=== PATIENT | male | born 1990 | race Caucasian/White ===

== ENCOUNTER 2017-02-13 22:13 | Emergency (ER) | payer OTHER ==
[2017-02-13 22:43] VITALS: RESP 16
[2017-02-13] MEDS ORDERED: Sodium Chloride 0.9% 1,000 ML IV ONE (23:17)
--- NOTE | 2017-02-13 23:17 | C.PDOC ---
History Of Present Illness Patient presents to the ER with a complaint of LLQ pain for the past 2 weeks that has worsened today. Denies fever, chills, nausea, vomiting. Time Seen by Provider: 02/13/17 23:17 Chief Complaint (Nursing): Abdominal Pain History Per: Patient History/Exam Limitations: no limitations Onset/Duration Of Symptoms: Days (2 weeks) Current Symptoms Are (Timing): Still Present Severity: Mild Pain Scale Rating Of: 4 Location Of Pain/Discomfort: LLQ Radiation Of Pain To:: None Associated Symptoms: denies: Fever, Chills, Nausea, Vomiting Exacerbating Factors: None Alleviating Factors: None Recent travel outside of the [place]: No Past Medical History Reviewed: Historical Data, Nursing Documentation, Vital Signs Vital Signs: Last Vital Signs Temp 98.2 F 02/13/17 22:41 Pulse 84 02/13/17 22:41 Resp 16 02/13/17 22:41 BP 138/85 02/13/17 22:41 Pulse Ox 99 02/14/17 00:37 - Medical History PMH: No Chronic Diseases Surgical History: No Surg Hx - [facility] Procedures CLOSURE SKIN & SUBCUTANEOUS NEC (03/09/14) Family History: States: No Known Family Hx - Social History Hx Tobacco Use: No Hx Alcohol Use: Yes Hx Substance Use: No - Immunization History Hx Tetanus Toxoid Vaccination: No Hx Influenza Vaccination: No Hx Pneumococcal Vaccination: No Review Of Systems Constitutional: Negative for: Fever, Chills Gastrointestinal: Positive for: Abdominal Pain (LLQ). Negative for: Nausea, Vomiting Physical Exam - Physical Exam Appears: Non-toxic Skin: Warm, Dry Oral Mucosa: Moist Chest: Symmetrical, No Tenderness Cardiovascular: Rhythm Regular, No Murmur Respiratory: No Rales, No Rhonchi, No Wheezing Gastrointestinal/Abdominal: Tenderness (LLQ), No Guarding, No Rebound Neurological/Psych: Oriented x3 ED Course And Treatment - Laboratory Results Result Diagrams: 02/13/17 23:43 02/13/17 23:43 O2 Sat by Pulse Oximetry: 99 Pulse Ox Interpretation: Normal Progress Note: Blood work ordered. IV fluids administered. Reevaluation Time: 01:09 Reassessment Condition: Improved Disposition Counseled Patient/Family Regarding: Studies Performed, Diagnosis, Need For Followup, Rx Given - Disposition Referrals: Florian Lucero MD [Staff Provider] - Disposition: HOME/ ROUTINE Disposition Time: 23:17 Condition: FAIR Prescriptions: Ibuprofen [Motrin Tab] 800 mg PO TID PRN #15 tab PRN Reason: Pain, Moderate (4-7) Instructions: Renal Colic (ED), Kidney Stones (DC) Print Language: GREENLANDIC - Clinical Impression Clinical Impression: Renal colic on left side, Kidney stone, Hematuria - Scribe Statement The provider has reviewed the documentation as recorded by the Scribkory Rao All medical record entries made by the Wilderibkory were at my direction and personally dictated by me. I have reviewed the chart and agree that the record accurately reflects my personal performance of the history, physical exam, medical decision making, and the department course for this patient. I have also personally directed, reviewed, and agree with the discharge instructions and disposition.
[2017-02-13 23:44] LABS: RBC URINE 695 /hpf (0-3); URINE BACTERIA RARE (<OCC); URINE BILIRUBIN NEGATIVE (NEGATIVE); URINE BLOOD 3+ (NEGATIVE); URINE COLOR Yellow (YELLOW); URINE GLUCOSE (UA) NORMAL (Normal); URINE KETONE NEGATIVE (NEGATIVE); URINE LEUKOCYTE ESTERASE NEG Leu/uL (Negative); URINE PROTEIN 1+ mg/dL (NEGATIVE); URINE UROBILINOGEN NORMAL mg/dL (0.2-1.0); WBC URINE 2 /hpf (0-5)
[2017-02-13 23:45] LABS: BASO # 0.1 K/uL (0.0-0.2); BASO % 1.5 % (0.0-2.0); EOS # 0.1 K/uL (0.0-0.7); EOS % 2.1 % (0.0-4.0); HEMATOCRIT 46.6 % (35.0-51.0); LYMPH # 2.5 K/uL (1.0-4.3); LYMPH % 50.4 % (20.0-40.0); MEAN CELL VOLUME 85.5 fL (80.0-94.0); MEAN CORPUSCULAR HEMOGLOBIN 29.1 pg (27.0-31.0); MEAN PLATELET VOLUME 9.2 fL (7.2-11.7); MONO # 0.4 K/uL (0.0-0.8); MONO % 7.1 % (0.0-10.0); NRBC % 0.2 % (0.0-2.0); RED CELL DISTRIBUTION WIDTH 12.8 % (11.5-14.5); WHITE BLOOD COUNT 5.1 K/uL (4.8-10.8)
[2017-02-13 23:53] LABS: CHLORIDE 102 mmol/L (98-107)
[2017-02-13 23:54] LABS: POTASSIUM 3.9 mmol/L (3.6-5.2); SODIUM 138 mmol/L (132-148)
[2017-02-13 23:56] LABS: ALB/GLOB RATIO 1.7 (1.0-2.1); ALKALINE PHOSPHATASE 48 U/L (38-126); AST/SGOT 29 U/L (17-59); BILIRUBIN,TOTAL 1.2 mg/dL (0.2-1.3); BLOOD UREA NITROGEN 20 mg/dL (9-20); CARBON DIOXIDE 26 mmol/L (22-30); GFR AFRICAN-AMERICAN > 60; TOTAL PROTEIN 7.5 g/dL (6.3-8.3)
[2017-02-13 23:57] LABS: ALT/SGPT 30 U/L (21-72); CALCIUM 9.2 mg/dl (8.6-10.4); GLUCOSE,RANDOM 87 mg/dL (75-110)
[2017-02-14] MEDS ORDERED: Sodium Chloride 0.9% 1,000 ML ONE (00:04)
--- NOTE | 2017-02-14 01:01 | CT ---
EXAM: CT Abdomen and Pelvis Without Intravenous Contrast CLINICAL HISTORY: 26 years old, male; Pain; Abdominal pain and other: Left lower abd pain; Patient HX: 816; Additional info: Abd pain, left flank TECHNIQUE: Axial computed tomography images of the abdomen and pelvis without intravenous contrast. This CT exam was performed using one or more of the following dose reduction techniques: automated exposure control, adjustment of the mA and/or kV according to patient size, and/or use of iterative reconstruction technique. Coronal and sagittal reformatted images were created and reviewed. EXAM DATE/TIME: 02/13/2017 11:56 PM COMPARISON: CT - ABD PELVIS W/O PO OR IV CONT 04/12/2016 8:13:51 PM FINDINGS: Lower thorax: Heart size is normal. There is minimal atelectasis and scarring at the lung bases. ABDOMEN: Liver: unremarkable Gallbladder and bile ducts: Gallbladder is collapsed. Common bile duct is not demonstrated. Pancreas: unremarkable Spleen: unremarkable Adrenals: unremarkable Kidneys and ureters: There is tiny bilateral nonobstructing renal stones there are no ureteral stones. There is no pelvocaliectasis or ureterectasis. Stomach and bowel: Stomach is partially distended. Rotation is normal. There is no obstruction. Terminal ileum is unremarkable. Appendix is unremarkable. There is moderate stool in the colon. Appendix: See above. PELVIS: Bladder: Urinary bladder is partially distended. Reproductive: Seminal vesicles and prostate are unremarkable. ABDOMEN and PELVIS: Intraperitoneal space:There is no free air or free fluid. Bones/joints: There are no acute osseous abnormalities Soft tissues: unremarkable Vasculature: Vascular structures are unremarkable. Lymph nodes: There is no pathologic adenopathy. IMPRESSION: Tiny bilateral nonobstructing renal stones, no ureteral stones or hydronephrosis Additional findings as described above.
[2017-02-14 01:35] VITALS: BP 130/72; PULSE 71; TEMP 98; O2SAT 98
== END 2017-02-14 01:35 | disposition home or self-care (01) ==
LOC: C.ER 22:13
DX: N20.0 Calculus of kidney (principal); R31.9 Hematuria, unspecified
CPT/HCPCS: 74176; 80053; 81001; 83690; 85025; 96361; 96374; 99284; J1885; J7040

== ENCOUNTER 2017-02-19 23:04 | Emergency (ER) | payer OTHER ==
[2017-02-19 23:31] VITALS: BP 131/77; PULSE 69; TEMP 98.3; O2SAT 99
--- NOTE | 2017-02-20 00:09 | C.PDOC ---
History Of Present Illness 26 y/o male with pmh of psychiatric disorder c/o left flank pain for some time that is worse when he is walking or lifting heavy things. . pain comes and goes. no fever or chills, 1 episode of vomiting yesterday, no diarrhea, last bm today. pt c/o possible hematuria. pt seen in ED n 02/14 for similar pain; had labs done and abdominal ct done with following results. IMPRESSION: Tiny bilateral nonobstructing renal stones, no ureteral stones or hydronephrosis . Pt sts he is taking ibuprofen with no relief. Time Seen by Provider: 02/19/17 23:40 Chief Complaint (Nursing): Male Genitourinary History Per: Patient History/Exam Limitations: no limitations Onset/Duration Of Symptoms: Days (weeks) Current Symptoms Are (Timing): Still Present Severity: Mild Quality Of Discomfort: "Pain" Associated Symptoms: Vomiting (on epidose yesterday), Urinary Symptoms. denies : Fever, Chills, Nausea, Diarrhea, Loss Of Appetite, Chest Pain Alleviating Factors: Rest Recent travel outside of the [place]: No Past Medical History Reviewed: Historical Data, Nursing Documentation, Vital Signs Vital Signs: Last Vital Signs Temp 98.3 F 02/19/17 23:25 Pulse 69 02/19/17 23:25 Resp 20 02/20/17 01:29 BP 131/77 02/19/17 23:25 Pulse Ox 99 02/20/17 01:26 - Medical History PMH: Depression, Kidney Stones (a week ago) Denies: Diabetes, Hepatitis, HIV, HTN, Seizures, Sexually Transmitted Disease Surgical History: No Surg Hx - [facility] Procedures CLOSURE SKIN & SUBCUTANEOUS NEC (03/09/14) Family History: States: Unknown Family Hx - Social History Hx Tobacco Use: No Hx Alcohol Use: Yes Hx Substance Use: No - Immunization History Hx Tetanus Toxoid Vaccination: No Hx Influenza Vaccination: No Hx Pneumococcal Vaccination: No Review Of Systems Constitutional: Negative for: Fever, Chills Respiratory: Negative for: Cough Gastrointestinal: Positive for: Vomiting, Abdominal Pain (llq). Negative for: Nausea Genitourinary: Positive for: Frequency, Hematuria Skin: Negative for: Rash Neurological: Negative for: Weakness, Numbness Physical Exam - Physical Exam Appears: Non-toxic, No Acute Distress Skin: Normal Color, Warm, Dry Head: Atraumatic, Normacephalic Neck: Normal ROM Chest: Symmetrical, No Deformity, No Tenderness Cardiovascular: Rhythm Regular, No Murmur Respiratory: Normal Breath Sounds, No Rales, No Rhonchi, No Wheezing Gastrointestinal/Abdominal: Bowel Sounds, Soft, No Tenderness Back: No CVA Tenderness Neurological/Psych: Oriented x3, Normal Speech, Normal Cognition, Normal Motor, Normal Sensation ED Course And Treatment O2 Sat by Pulse Oximetry: 99 Medical Decision Making Medical Decision Makin26 y/o male with renal stones c/o continuing left flank pain, dx with renal stones after ct on 02/14. pt reports pain worse with movement; likely muculoskeletal. 118 am pt is comfortable. axr shows large stool. will give miralax. also pt still with hematuria and occasional dysuria; will tx for uti, f/u gu and med clinic. Disposition Counseled Patient/Family Regarding: Studies Performed, Diagnosis, Need For Followup, Rx Given - Disposition Referrals: Florian Lucero MD [Staff Provider] - [facility] [Outside] [facility] [Outside] Disposition: HOME/ ROUTINE Disposition Time: 01:20 Condition: STABLE Additional Instructions: Drink increased fluids, try prune juice to help with bowel movements. . Take ibuprofen for pain. Take antibiotic until completed. Take miralax for constipaiton. Follow up with urologist (Dr Lucero) and also in medical clinic. Prescriptions: Nitrofurantoin Macrocrystals [Macrobid] 100 mg PO BID #14 cap Polyethylene Glycol 3350 [Miralax] 17 gm PO DAILY #7 packet Instructions: Constipation (ED), Urinary Tract Infection in Men (ED) Forms: Gen Discharge Inst Greek Print Language: DIVEHI - Clinical Impression Clinical Impression: Constipation, Urinary tract infection
[2017-02-20 00:47] LABS: RBC URINE 66 /hpf (0-3); URINE BILIRUBIN NEGATIVE (NEGATIVE); URINE BLOOD 2+ (NEGATIVE); URINE COLOR Yellow (YELLOW); URINE GLUCOSE (UA) NORMAL (Normal); URINE KETONE NEGATIVE (NEGATIVE); URINE LEUKOCYTE ESTERASE TRACE Leu/uL (Negative); URINE PROTEIN NEGATIVE (NEGATIVE); URINE UROBILINOGEN NORMAL mg/dL (0.2-1.0); WBC URINE 6 /hpf (0-5)
[2017-02-20 01:30] VITALS: RESP 20
--- NOTE | 2017-02-20 07:32 | RAD ---
Abdomen two views History: Left-sided abdominal pain. Comparison: None available. Findings: Moderate fecal retention in the colon. No evidence of bowel obstruction. Relative paucity of small bowel gas. Osseous structures preserved. Impression: Moderate fecal retention in the colon.
== END 2017-02-20 01:29 | disposition home or self-care (01) ==
LOC: C.ER 23:04
DX: N39.0 Urinary tract infection, site not specified (principal); R31.9 Hematuria, unspecified; K59.00 Constipation, unspecified
CPT/HCPCS: 74000; 81001; 96372; 99284; J1885

== ENCOUNTER 2017-08-29 08:04 | Emergency (ER) | payer OTHER ==
[2017-08-29 08:06] VITALS: BMI 24.0
[2017-08-29 08:08] VITALS: RESP 18; TEMP 98.1; O2SAT 98
--- NOTE | 2017-08-29 09:12 | C.PDOC ---
History Of Present Illness 27 year old male presents to ED for evaluation of left ankle pain since last night. Pt states he stood on a table to clean something, and fell injuring his left lower leg last night. Notes having surgery on his left ankle 5 years ago in OR. Denies fever, or change in sensation. Denies head trauma or any other injury. Pt notes he just wants to make sure the surgery is "ok". Time Seen by Provider: 08/29/17 08:16 Chief Complaint (Nursing): Lower Extremity Problem/Injury History Per: Patient History/Exam Limitations: no limitations Onset/Duration Of Symptoms: Days (1) Current Symptoms Are (Timing): Still Present Recent travel outside of the [place]: No Additional History Per: Patient - Ankle/Foot Description Of Injury: Fell Past Medical History Reviewed: Historical Data, Nursing Documentation, Vital Signs Vital Signs: Last Vital Signs Temp 98.1 F 08/29/17 08:06 Pulse 69 08/29/17 08:06 Resp 18 08/29/17 08:06 BP 135/79 08/29/17 08:06 Pulse Ox 98 08/29/17 09:22 - Medical History PMH: Depression, Kidney Stones (a week ago), Chronic Kidney Disease Denies: Diabetes, Hepatitis, HIV, HTN, Seizures, Sexually Transmitted Disease Other Surgeries: left ankle surgery 5 years ago - [facility] Procedures CLOSURE SKIN & SUBCUTANEOUS NEC (03/09/14) Family History: States: Unknown Family Hx - Social History Hx Tobacco Use: No Hx Alcohol Use: Yes Hx Substance Use: No - Immunization History Hx Tetanus Toxoid Vaccination: No Hx Influenza Vaccination: No Hx Pneumococcal Vaccination: No Review Of Systems Except As Marked, All Systems Reviewed And Found Negative. Constitutional: Negative for: Fever, Chills Musculoskeletal: Positive for: Foot Pain (left ankle pain) Skin: Negative for: Rash, Bruising Neurological: Negative for: Weakness, Numbness Physical Exam - Physical Exam Appears: Non-toxic, No Acute Distress Skin: Warm, Dry, No Other (superficial abrasion to proximal aspect of left lower leg with no swelling, erythema or tenderess.) Head: Atraumatic, Normacephalic Eye(s): bilateral: Normal Inspection, EOMI Nose: Normal Oral Mucosa: Moist Neck: Normal ROM, Supple Chest: Symmetrical Cardiovascular: Rhythm Regular Respiratory: No Accessory Muscle Use Extremity: Normal ROM, Tenderness (mild tenderness to lateral aspect of left ankle ), No Pedal Edema, No Calf Tenderness, Capillary Refill (less than 2 seconds), No Deformity, No Swelling Extremity: Bilateral: Normal Color And Temperature, Normal ROM Pulses: Left Dorsalis Pedis: Normal, Right Dorsalis Pedis: Normal Neurological/Psych: Oriented x3, Normal Speech, Normal Motor, Normal Sensation ED Course And Treatment O2 Sat by Pulse Oximetry: 98 (RA) Pulse Ox Interpretation: Normal - Other Rad Left ankle x-ray X-Ray: Interpreted by Me, Viewed By Me Interpretation: No acute fracture or dislocation. Progress Note: Left ankle x-ray ordered and reviewed. Pt was given Motrin for pain. Stirrup splint applied to left ankle by apartment maintenance technician. Pt is being discharged home, with instructions to follow up with orthopedist in 1-2 days for further evaluation. Disposition - Disposition Referrals: Janae Castañeda MD [Staff Provider] - Disposition: HOME/ ROUTINE Disposition Time: 09:44 Condition: STABLE Additional Instructions: Rest, ice and elevate the area. Follow up with your bone doctor in 1-2 days. Return to ER if symptoms persist or worsen. 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 - Scribe Statement The provider has reviewed the documentation as recorded by the Scribe Awais Bang All medical record entries made by the Scribe were at my direction and personally dictated by me. I have reviewed the chart and agree that the record accurately reflects my personal performance of the history, physical exam, medical decision making, and the department course for this patient. I have also personally directed, reviewed, and agree with the discharge instructions and disposition.
--- NOTE | 2017-08-29 09:39 | RAD ---
PROCEDURE: Left Ankle Radiographs. HISTORY: trauma COMPARISON: None FINDINGS: BONES: . Lateral plate with 5 horizontal screws transfixing the plate to the fibula noted. . There are 2 diagonal screws projecting over the fibula and posterior malleolus not within the plate JOINTS: No prominent spurring. Ankle mortise maintained. Talar dome intact SOFT TISSUES: Normal. OTHER FINDINGS: None. IMPRESSION: Status post open reduction and internal fixation of prior ankle fracture. No hardware failure appreciated
[2017-08-29 09:59] VITALS: BP 128/69; PULSE 71
== END 2017-08-29 09:51 | disposition home or self-care (01) ==
LOC: C.ER 08:04
DX: S93.402A Sprain of unspecified ligament of left ankle, initial encounter (principal); W08.XXXA Fall from other furniture, initial encounter; N18.9 Chronic kidney disease, unspecified

== ENCOUNTER 2017-11-20 07:07 | Emergency (ER) | payer OTHER ==
[2017-11-20 07:07] VITALS: BMI 24.0
[2017-11-20] MEDS ORDERED: Sodium Chloride 0.9% 1,000 ML IV ONE (07:32)
[2017-11-20] MEDS ORDERED: Sodium Chloride 0.9% 1,000 ML ONE (07:52)
--- NOTE | 2017-11-20 07:54 | C.PDOC ---
History Of Present Illness 27 y/o male presents to ED with complaints of intermittent left sided abdominal pain 7/10 for 3 weeks with associated dysuria and hematuria. Patient reports pain became constant 3 days ago but denies taking any pain medication. Patient states last bowel movement was this morning and denies change in appetite, nausea, vomiting, diarrhea, scrotum pain or penile discharge. Time Seen by Provider: 11/20/17 07:20 Chief Complaint (Nursing): Abdominal Pain History Per: Patient History/Exam Limitations: no limitations Onset/Duration Of Symptoms: Days Current Symptoms Are (Timing): Still Present Location Of Pain/Discomfort: LLQ Past Medical History Reviewed: Historical Data, Nursing Documentation, Vital Signs Vital Signs: Last Vital Signs Temp 97.4 F L 11/20/17 07:11 Pulse 65 11/20/17 07:11 Resp 20 11/20/17 07:11 BP 129/78 11/20/17 07:11 Pulse Ox 98 11/20/17 07:54 - Medical History PMH: Depression, Chronic Kidney Disease Comment Only: Kidney Stones (a week ago) Surgical History: No Surg Hx - [facility] Procedures CLOSURE SKIN & SUBCUTANEOUS NEC (03/09/14) Family History: States: No Known Family Hx - Social History Hx Tobacco Use: No Hx Alcohol Use: Yes Hx Substance Use: No - Immunization History Hx Tetanus Toxoid Vaccination: No Hx Influenza Vaccination: No Hx Pneumococcal Vaccination: No Review Of Systems Constitutional: Negative for: Fever, Chills Gastrointestinal: Positive for: Abdominal Pain. Negative for: Nausea, Vomiting , Diarrhea Genitourinary: Positive for: Dysuria, Hematuria. Negative for: Penile Discharge , Scrotal Pain Skin: Negative for: Rash Physical Exam - Physical Exam Appears: Non-toxic, No Acute Distress Skin: Warm, Dry, No Rash Head: Atraumatic, Normacephalic Oral Mucosa: Moist Neck: Normal ROM, Supple Cardiovascular: Rhythm Regular, No Murmur Respiratory: Normal Breath Sounds, No Rales, No Rhonchi, No Wheezing Gastrointestinal/Abdominal: Soft, No Tenderness, No Guarding, No Rebound Back: No CVA Tenderness Extremity: Normal ROM, Capillary Refill (<2 seconds) ED Course And Treatment O2 Sat by Pulse Oximetry: 98 Disposition - Disposition Forms: [employer] (Dominican)
--- NOTE | 2017-11-20 08:02 | C.PDOC ---
History Of Present Illness 27 y/o male with history of Kidney stones presents to ED with complaints of intermittent left sided abdominal pain 7/10 for 3 weeks with associated dysuria and hematuria. He reports drinking water to flush it out. Patient reports pain became constant 3 days ago, but denies taking any pain medication. Patient states last bowel movement was this morning and denies change in appetite, nausea, vomiting, diarrhea, scrotum pain or penile discharge. Time Seen by Provider: 11/20/17 07:20 Chief Complaint (Nursing): Abdominal Pain History Per: Patient History/Exam Limitations: no limitations Onset/Duration Of Symptoms: Days Current Symptoms Are (Timing): Still Present Location Of Pain/Discomfort: LLQ Radiation Of Pain To:: Flank Quality Of Discomfort: "Pain" Past Medical History Reviewed: Historical Data, Nursing Documentation, Vital Signs Vital Signs: Last Vital Signs Temp 98.0 F 11/20/17 11:16 Pulse 67 11/20/17 11:16 Resp 18 11/20/17 11:16 BP 144/80 11/20/17 11:16 Pulse Ox 100 11/20/17 11:16 - Medical History PMH: Depression, Chronic Kidney Disease Comment Only: Kidney Stones (a week ago) Surgical History: No Surg Hx - [facility] Procedures CLOSURE SKIN & SUBCUTANEOUS NEC (03/09/14) Family History: States: No Known Family Hx - Social History Hx Tobacco Use: No Hx Alcohol Use: Yes Hx Substance Use: No - Immunization History Hx Tetanus Toxoid Vaccination: No Hx Influenza Vaccination: No Hx Pneumococcal Vaccination: No Review Of Systems Constitutional: Negative for: Fever, Chills Gastrointestinal: Positive for: Abdominal Pain. Negative for: Nausea, Vomiting , Diarrhea Genitourinary: Positive for: Dysuria, Hematuria. Negative for: Penile Discharge , Scrotal Pain, Penile Pain Skin: Negative for: Rash Physical Exam - Physical Exam Appears: Well, Non-toxic, No Acute Distress Skin: Warm, Dry, No Rash Head: Atraumatic, Normacephalic Eye(s): bilateral: Normal Inspection, EOMI Oral Mucosa: Moist Neck: Normal ROM, Supple Chest: Symmetrical Cardiovascular: Rhythm Regular, No Murmur Respiratory: Normal Breath Sounds, No Rales, No Rhonchi, No Wheezing Gastrointestinal/Abdominal: Soft, No Tenderness, No Mass, No Distention, No Guarding, No Rebound Back: Normal Inspection, No CVA Tenderness Extremity: Bilateral: Atraumatic, Normal ROM Neurological/Psych: Oriented x3, Normal Speech Gait: Steady ED Course And Treatment - Laboratory Results Result Diagrams: 11/20/17 07:53 11/20/17 07:53 Lab Interpretation: No Acute Changes O2 Sat by Pulse Oximetry: 98 (RA) Pulse Ox Interpretation: Normal - CT Scan/US CT abd/pelvis Other Rad Studies (CT/US): Read By Radiologist, Radiology Report Reviewed CT/US Interpretation: HISTORY: Left sided abd pain. COMPARISON: None. TECHNIQUE: Axial images of the abdomen were obtained in the pre contrast, portal venous and delayed phases of enhancement. Coronal and sagittal reformats were generated. Contrast dose: 100 mL Visipaque 320. Radiation dose: Total exam DLP = 721.91 mGy-cm. This CT exam was performed using one or more of the following dose reduction techniques: Automated exposure control, adjustment of the mA and/or kV according to patient size, and/or use of iterative reconstruction technique. FINDINGS: LOWER THORAX: Unremarkable. LIVER: Unremarkable. No gross lesion or ductal dilatation. GALLBLADDER AND BILE DUCTS : Unremarkable. PANCREAS: Unremarkable. No gross lesion or ductal dilatation. SPLEEN: Unremarkable. ADRENALS: Unremarkable. No mass. KIDNEYS AND URETERS: Nonobstructing 2 mm mid right renal calculus. Two nonobstructing 2 mm calculi mid left kidney. No obstructing calculus. No hydronephrosis. No renal mass. VASCULATURE: Unremarkable. No aortic aneurysm. BOWEL: Unremarkable. No obstruction. No gross mural thickening. APPENDIX: Normal appendix. PERITONEUM: Unremarkable. No free fluid. No free air. LYMPH NODES: Unremarkable. No enlarged lymph nodes. BLADDER: Suboptimally distended. Grossly normal. REPRODUCTIVE: Unremarkable prostate. BONES: No acute fracture. OTHER FINDINGS: None. IMPRESSION: Bilateral tiny nonobstructing renal calculi. No evidence of urinary tract obstruction. Otherwise unremarkable examination. Medical Decision Making Medical Decision Making: Impression: left sided abdominal pain and flank Plan: CT scan Abd/pelvis, Blood work and UA ordered. IV fluids, Toradol administered Progress: Labs reviewed unremarkable. CT shows left renal calculi. Re-eval: Patient resting in bed in no distress. Patient feels better. Discussed results with patient and provide copy of lab and CT imaging reports. All questions answered and there is agreement with the plan to discharge home with instructions to follow up with urology. Patient is stable for discharge. Advised to return if symptoms persist or worsen. Dispo: Discharge home. Patient was recommended to follow up with clinic and urology in 1-2 days. Return to ED if symptoms worsen. Disposition Counseled Patient/Family Regarding: Diagnosis, Need For Followup, Rx Given - Disposition Referrals: Nik Sotomayor MD [Staff Provider] - Disposition: HOME/ ROUTINE Disposition Time: 11:03 Condition: IMPROVED Additional Instructions: Your labs were normal. CT of abdmomen shows renal calculus left side. Take medications as prescribed. Please follow up with urologist for further evaluation Prescriptions: Naproxen [Naprosyn] 1 tab PO BID PRN #25 tab PRN Reason: Pain Tamsulosin [Flomax] 0.4 mg PO DAILY #10 cap Instructions: Kidney Stones in Adults Forms: [facility] (Samoan), Work Excuse - POA Present On Arrival: None - Clinical Impression Clinical Impression: Calculus of left kidney - PA / PRODUCTION CONTROL PLANNER / Resident Statement MD/DO has reviewed & agrees with the documentation as recorded. - Scribe Statement The provider has reviewed the documentation as recorded by the Scribkory Solomon All medical record entries made by the Deepika were at my direction and personally dictated by me. I have reviewed the chart and agree that the record accurately reflects my personal performance of the history, physical exam, medical decision making, and the department course for this patient. I have also personally directed, reviewed, and agree with the discharge instructions and disposition.
[2017-11-20 08:06] LABS: BASO % 0.4 % (0.0-2.0); EOS # 0.4 K/uL (0.0-0.7); EOS % 9.8 % (0.0-4.0); LYMPH # 2.2 K/uL (1.0-4.3); LYMPH % 52.4 % (20.0-40.0); MEAN CELL VOLUME 86.1 fL (80.0-94.0); MEAN CORPUSCULAR HEMOGLOBIN 29.7 pg (27.0-31.0); MEAN CORPUSCULAR HGB CONC 34.6 g/dL (33.0-37.0); MEAN PLATELET VOLUME 9.7 fL (7.2-11.7); MONO # 0.4 K/uL (0.0-0.8); MONO % 8.7 % (0.0-10.0); NEUT # 1.2 K/uL (1.8-7.0); NEUT % 28.7 % (50.0-75.0); NRBC % 0.1 % (0.0-2.0); RBC 5.38 Mil/uL (4.40-5.90); RED CELL DISTRIBUTION WIDTH 12.9 % (11.5-14.5); WHITE BLOOD COUNT 4.2 K/uL (4.8-10.8)
[2017-11-20 08:09] LABS: SQUAMOUS EPITHIAL < 1 /hpf (0-5); URINE BILIRUBIN NEGATIVE (NEGATIVE); URINE BLOOD NEGATIVE (NEGATIVE); URINE CLARITY Clear (Clear); URINE COLOR Yellow (YELLOW); URINE GLUCOSE (UA) NORMAL (Normal); URINE LEUKOCYTE ESTERASE NEG Leu/uL (Negative); URINE PROTEIN NEGATIVE (NEGATIVE); URINE UROBILINOGEN NORMAL mg/dL (0.2-1.0)
[2017-11-20 08:32] LABS: ALB/GLOB RATIO 1.6 (1.0-2.1); ALBUMIN 4.6 g/dL (3.5-5.0); ALT/SGPT 25 U/L (21-72); AST/SGOT 37 U/L (17-59); BLOOD UREA NITROGEN 13 mg/dL (9-20); CALCIUM 9.2 mg/dl (8.6-10.4); GFR AFRICAN-AMERICAN > 60; GFR NON-AFRICAN AMERICAN > 60; LIPASE 118 U/L (23-300)
[2017-11-20] MEDS ORDERED: Iodixanol 320 MG/ML 100 ML BOTTLE IV ONE (09:43)
--- NOTE | 2017-11-20 10:59 | CT ---
PROCEDURE: CT Abdomen and Pelvis with and without intravenous contrast HISTORY: Left sided abd pain COMPARISON: None. TECHNIQUE: Axial images of the abdomen were obtained in the pre contrast, portal venous and delayed phases of enhancement. Coronal and sagittal reformats were generated. Contrast dose: 100 mL Visipaque 320 Radiation dose: Total exam DLP = 721.91 mGy-cm. This CT exam was performed using one or more of the following dose reduction techniques: Automated exposure control, adjustment of the mA and/or kV according to patient size, and/or use of iterative reconstruction technique. FINDINGS: LOWER THORAX: Unremarkable. LIVER: Unremarkable. No gross lesion or ductal dilatation. GALLBLADDER AND BILE DUCTS: Unremarkable. PANCREAS: Unremarkable. No gross lesion or ductal dilatation. SPLEEN: Unremarkable. ADRENALS: Unremarkable. No mass. KIDNEYS AND URETERS: Nonobstructing 2 mm mid right renal calculus. Two nonobstructing 2 mm calculi mid left kidney. No obstructing calculus. No hydronephrosis. No renal mass. VASCULATURE: Unremarkable. No aortic aneurysm. BOWEL: Unremarkable. No obstruction. No gross mural thickening. APPENDIX: Normal appendix. PERITONEUM: Unremarkable. No free fluid. No free air. LYMPH NODES: Unremarkable. No enlarged lymph nodes. BLADDER: Suboptimally distended. Grossly normal. REPRODUCTIVE: Unremarkable prostate. BONES: No acute fracture. OTHER FINDINGS: None. IMPRESSION: Bilateral tiny nonobstructing renal calculi. No evidence of urinary tract obstruction. Otherwise unremarkable examination.
[2017-11-20 11:17] VITALS: BP 144/80; PULSE 67; RESP 18; TEMP 98
[2017-11-20 14:07] VITALS: O2SAT 98
== END 2017-11-20 11:20 | disposition home or self-care (01) ==
LOC: C.ER 07:07
DX: N20.0 Calculus of kidney (principal); Z87.442 Personal history of urinary calculi
CPT/HCPCS: 74178; 80053; 81001; 83690; 85025; 87086; 87491; 87591; 96361; 96374; 99284; J1885; J7040; Q9967